=== PATIENT | female | born 2000 | race Caucasian/White ===

== ENCOUNTER 2024-06-09 05:57 | Emergency (ER) | payer BC, SELFPAY ==
--- NOTE | ~2024-06-09 | CT_ITS ---
CLINICAL HISTORY: fall with head strike and LOC CT head without contrast Comparison: None Findings: No intra-axial mass, midline shift, hydrocephalus, or acute hemorrhage. No significant atrophy-like change or white matter disease. There is no sinus or mastoid fluid. The orbits are unremarkable. No skull fracture. IMPRESSION: 1. No acute intracranial hemorrhage or skull fracture. This document has been electronically signed by: Maria Whitmore MD on 06/09/2024 07:51:29
--- NOTE | ~2024-06-09 | CT_ITS ---
CLINICAL HISTORY: syncope + dimer CT angiography chest with contrast. 3D Postprocessing. Comparison: None Findings: The heart is not enlarged. Bovine aortic arch, normal variant. The main pulmonary artery measures 2.5 cm in diameter and 397 Hounsfield units. No main, lobar, or segmental pulmonary arterial filling defect. No intrathoracic lymphadenopathy. The lungs are clear. The proximal celiac artery is narrowed and inferiorly deflected. Correlate for evidence of median arcuate ligament syndrome. Left renal superior pole subcentimeter hypodensity, too small to characterize. Anterosuperior splenic subcentimeter hypodensity, too small to characterize. No acute fractures. IMPRESSION: No evidence of pulmonary embolism. No acute intrathoracic findings. This document has been electronically signed by: Andrews Mantilla DO on 06/09/2024 11:35:11
--- NOTE | ~2024-06-09 | CT_ITS ---
CLINICAL HISTORY: fall with LOC and head strike CT cervical spine without contrast Comparison: None Findings: Vertebral alignment is within normal limits. No significant degenerative change. No acute fractures or dislocations. No acute findings on limited view of the intracranial contents. No cervical fluid collections or masses. Lung apices are clear. IMPRESSION: No evidence of acute fracture or malalignment. This document has been electronically signed by: Maria Whitmore MD on 06/09/2024 07:56:46
[2024-06-09 06:02] VITALS: BP 101/53; PULSE 97; RESP 18; TEMP 37.1; O2SAT 98; BMI 22.4
--- NOTE | 2024-06-09 06:23 | ECG_ITS ---
Test Reason : FALL Blood Pressure : */* mmHG Vent. Rate : 71 BPM Atrial Rate : 71 BPM P-R Int : 136 ms QRS Dur : 92 ms QT Int : 378 ms P-R-T Axes : 42 78 -2 degrees QTcB Int : 410 ms Normal sinus rhythm T wave abnormality, consider inferior ischemia Abnormal ECG No previous ECGs available Referred By: Generic ED Physician Electronically Signed By: JERSON FLORES MD
--- NOTE | 2024-06-09 06:53 | ED_ITS ---
HPI - General Adult General Chief complaint: Fall Stated complaint: fainted, fall w/ head strike Time Seen by Provider: 06/09/24 06:46 Source: patient Mode of arrival: ambulatory Limitations: no limitations History of Present Illness ED Provider: FELICIA Arrington HPI narrative: This is a 23 year old female history of vasovagal syncope presenting from [facility] status post 2 syncopal episodes this morning. Patient reports she got up at approximately 04:30 in the morning and she was walking to the bathroom, she reports she passed out in the hallway with positive head strike, she then returned to her room she told her roommate she then tried walking to the bathroom again with her roommate she went to the bathroom had liquid diarrhea and on her way back to the room she again passed out with positive head strike. She is not on blood thinners. She tells me she has a history of vasovagal syncope. Related Data Previous Rx's ?Medication ?Instructions ?Recorded ondansetron HCl 4 mg tablet 4 mg PO Q8H PRN nausea and 06/09/24 vomiting #14 tabs Allergies Allergy/AdvReac Type Severity Reaction Status Date / Time honey AdvReac Hives Verified 06/09/24 06:03 shrimp AdvReac Hives Verified 06/09/24 06:03 Review of Systems 2 Review of Systems: Yes all other systems are reviewed and are negative [facility] Past Medical History Attestation statement: The following information was validated with the patient. Source: old records reviewed and nursing notes reviewed Social History Social History Smoked in Last 30 Days: No Advance Directives: No Advance Directives Information Provided: Yes Do you have a plan to hurt others: No Plan Patient : No Physical Exam ED Vital Signs: Vital Signs - 24 hr 06/09/24 06:02 06/09/24 10:41 06/09/24 11:51 Temperature 98.8 F 98.4 F 97.9 F Pulse Rate 97 68 92 Respiratory Rate 18 14 16 Blood Pressure 101/53 L 98/50 L 96/54 L Pulse Oximetry 98 100 100 Oxygen Delivery Method Room Air Room Air Room Air 06/09/24 12:08 Temperature 97.9 F Pulse Rate 92 Respiratory Rate 16 Blood Pressure 96/54 L Pulse Oximetry 100 Oxygen Delivery Method Room Air BMI result Body Mass Index 22.4 Vital signs stable Appearance: Alert.? Oriented X3.? No acute distress.? Head: Normocephalic, atraumatic, no step-offs or deformities Eyes: Pupils equal, round and reactive to light.? ENT: Pharynx normal.? Neck: Normal inspection.? Neck supple.? CVS: Normal heart rate and rhythm.? Pulses normal.? Respiratory: No respiratory distress.? Breath sounds normal.? Abdomen: Soft and nontender.? Skin: Skin warm and dry.? Normal skin color.? Normal skin turgor.? Extremities: No lower extremity edema.? No calf ttp. 5/5 strength to bilateral upper and lower extremities Neuro: Oriented X 3.? No motor deficit.? No sensory deficit. CN 2-12 intact Course Reevaluation(s) Reevaluation #1: CBC with leukocytosis and left shift. Chemistry with no acute findings needing intervention. Troponin negative, EKG nonischemic. Beta hCG negative. D-dimer positive order CTA to further evaluate syncope and positive D-dimer. She denies chest pain and shortness of breath low suspicion for PE however will rule out. Flu, COVID, RSV negative. Pending CTA Time: 09:31 Reevaluation #2: CT head no acute intracranial findings. CT cervical spine no evidence of acute fracture or malalignment. CTA negative for PE. No abnormalities. Urine negative. Educated patient on diagnosis and treatment plan, answered all question, patient verbalizes understanding. At this time patient will be discharged home, advised to return with new or worsening symptoms. Educated on worrisome signs and symptoms and when to return. At this time I feel comfortable discharge home. Time: 11:41 Reevaluation #3: Upon re-evaluation and discharge patient states headache much better. She is feeling much better. Medications Administered Discontinued Medications Generic Name Dose Route Start Last Admin Trade Name Freq PRN Reason Stop Dose Admin Acetaminophen 650 mg 06/09/24 08:34 06/09/24 09:25 Acetaminophen 325 Mg Tablet PO 06/09/24 08:35 650 mg ONCE ONE Administration Sodium Chloride 1,000 mls @ 999 mls/hr 06/09/24 11:15 06/09/24 11:51 Ns IV 06/09/24 12:15 Infused .Q1H1M ILIR Infusion Iohexol 100 ml 06/09/24 09:35 06/09/24 09:35 Iohexol 350 Mg/Ml 100 Ml Infus..Btl IV 06/09/24 09:36 65 ml ONCE ONE Administration Medical Decision Making Medical Decision Making [facility] Narrative: 0708 23-year-old female presents status post 2 syncopal episodes, diarrhea and diffuse abdominal cramping. Physical exam benign. Neurological assessment nonfocal. Abdomen soft nontender nondistended History and physical exam concerning for viral illness with likely to episodes of vasovagal syncope. Unlikely intracranial hemorrhage, stroke, posterior stroke. Unlikely seizure. No signs of trauma to head, neck, chest, abdomen or pelvis. Diarrhea likely viral/norovirus versus flu versus COVID. Unlikely pulmonary embolism PERC negative. Unlikely ACS or dissection. Low suspicion for dysrhythmia Plan labs, imaging Differential Diagnosis Differential Diagnoses: The differential diagnosis associated with the presentation includes (History and physical exam concerning for viral illness with likely to episodes of vasovagal syncope. Unlikely intracranial hemorrhage, stroke, posterior stroke. Unlikely seizure. No signs of trauma to head, neck, chest, abdomen or pelvis. Diarrhea likely viral/norovirus versus flu versus COVID. ) Admission/Observation Consideration of admission/observation: Escalation of care including admission/observation considered Lab Data [facility] Lab Attestation statement: I reviewed the patient's lab results. 06/09/24 07:08 06/09/24 07:08 Labs: Lab Results 06/09/24 06/09/24 06/09/24 Range/Units 07:08 07:40 10:44 WBC 12.7 H (4.8-10.8) X10*3/uL RBC 4.02 L (4.20-5.50) X10*6/uL Hgb 12.1 (12.0-16.0) g/dl Hct 34.5 L (37.0-47.0) % MCV 85.8 (80.0-98.0) fL MCH 30.1 (27.0-33.0) pg MCHC 35.1 H (31.0-35.0) g/dl RDW 13.7 (11.0-16.0) % Plt Count 234 (160-400) X10*3/uL MPV 8.7 L (9.4-12.3) fL Immature Gran % (Auto) 0.4 (0.0-0.4) % Neut % (Auto) 91.5 H (45-73) % Lymph % (Auto) 3.4 L (20-40) % [place] % (Auto) 4.5 (2-11) % Eos % (Auto) 0.0 (0-4) % Baso % (Auto) 0.2 (0-2) % Lymph # (Auto) 0.4 L (1.2-4.9) X10*3/uL [place] # (Auto) 0.6 (0.1-1.2) X10*3/uL Eos # (Auto) 0.0 (0.0-0.4) X10*3/uL Baso # (Auto) 0.0 (0.0-0.2) X10*3/uL Abs Immat Gran (auto) 0.05 H (0.00-0.03) X10*3/uL Absolute Neuts (auto) 11.6 H (2.0-8.3) x10*3/uL Absolute Nucleated RBC 0.000 (0.0-0.012) X10*3/uL Nucleated RBC % (auto) 0.0 (0.0-0.2) /100WBC Smear Tech's Comments VERIFIED PT 14.6 H (10.9-12.4) SEC INR 1.3 H (0.9-1.1) D-Dimer High Sensitivty 306 NG/ML Sodium 134 L (135-145) mmol/L Potassium 4.4 (3.3-5.1) mmol/L Chloride 105 (96-108) mmol/L Carbon Dioxide 19 L (22-29) mmol/L Anion Gap 14 (12-20) BUN 10 (9-16) mg/dL Creatinine 0.76 (0.5-1.4) mg/dL Estim Creat Clear Calc 113.8 Estimated GFR > 60 Random Glucose 132 H (60-115) mg/dL Calcium 9.0 (8.4-10.2) mg/dL Total Bilirubin 0.9 (0.0-1.0) mg/dL AST 17 (5-31) U/L ALT 9 (0-31) U/L Alkaline Phosphatase 70 (39-117) U/L Troponin I High Sens < 2.7 (<3.5-17.0) ng/L Total Protein 7.0 (6.5-8.0) g/dL Albumin 4.1 (3.5-5.0) g/dL Beta HCG, Quant < 2 mIU/mL Urine Color Yellow Urine Appearance Clear Urine pH 6.5 (5.0-9.0) Ur Specific [place] 1.010 (1.005-1.025) Urine Protein Negative (Neg-Trace) mg/dL Urine Glucose (UA) Negative (Negative) mg/dL Urine Ketones Negative (Negative) mg/dL Urine Blood Negative (Negative) Urine Nitrite Negative (Negative) Ur Leukocyte Esterase Negative (Negative) Influenza Type A (PCR) NEGATIVE (Negative) Influenza Type B (PCR) NEGATIVE (Negative) RSV RNA Qual (PCR) NEGATIVE (Negative) SARS-CoV-2 RNA (RT-PCR) NEGATIVE (Negative) Independent Interpretation I performed an independent interpretation of an: CT Scan Radiology Impression Discussion of test interpretation with radiology: I have reviewed the radiologist's reading. Chronic Conditions Patient?s care impacted by: Other (see hpi ) Critical Care Time Critical Care Time Critical Care Time: Yes Total Critical Care Time: 35 Attestation: I attest to this time spent taking care of the patient, obtaining history, physical, reviewing labs, imaging, treatment of patients condition +/- specialist/hospitalist consult Discharge Plan Discharge Clinical Impression: Viral illness, Nausea & vomiting, Diarrhea, Concussion with loss of consciousness Patient Disposition: Home, Self-Care Instructions: Acute Nausea and Vomiting (ED), Acute Diarrhea (ED), Viral Syndrome (ED), Post Concussion Syndrome (ED) Additional Instructions: Take your medications as prescribed. If you were prescribed antibiotics today, it is important that you take your medication to their entirety, do not skip any doses, do not finish them early. Follow-up with your primary care provider this week. Return to the emergency department with new or worsening symptoms. Such as fevers, chills, chest pain, shortness of breath, nausea, vomiting, dizziness, headache, vision changes, lethargy In case of emergency call 911 Darcie has been sent to your pharmacy for nausea and vomiting. Diarrhea is likely viral and he should let it run its course. Drink plenty of fluids Prescriptions: New ondansetron HCl 4 mg tablet 4 mg PO Q8H PRN (Reason: nausea and vomiting) Qty: 14 0RF Referrals: Emily Mariscal, [facility], NURSING TECH [Primary Care Provider] - 2 days Stand Alone Forms: Work/School Release Interventions: ED Discharge Assessment Last Done: 06/09/24 12:08 Discharge Date/Time: 06/09/24 12:09 Print Language: Wallisian
[2024-06-09 07:13] LABS: Basophils Percent Auto 0.2 % (0-2); Hematocrit 34.5 % (37.0-47.0); Hemoglobin 12.1 g/dl (12.0-16.0); Imm Gran Abs Auto 0.05 X10*3/uL (0.00-0.03); Imm Gran Pct Auto 0.4 % (0.0-0.4); Lymphocytes Absolute Auto 0.4 X10*3/uL (1.2-4.9); Lymphocytes Percent Auto 3.4 % (20-40); MANUAL DIFF FLAG SCAN; Mean Corpuscular HGB Conc 35.1 g/dl (31.0-35.0); Mean Corpuscular Hemoglobin 30.1 pg (27.0-33.0); Mean Corpuscular Volume 85.8 fL (80.0-98.0); Mean Platelet Volume 8.7 fL (9.4-12.3); Monocytes Absolute Auto 0.6 X10*3/uL (0.1-1.2); Monocytes Percent Auto 4.5 % (2-11); Neutrophils Absolute Auto 11.6 x10*3/uL (2.0-8.3); Neutrophils Percent Auto 91.5 % (45-73); Platelet Count 234 X10*3/uL (160-400); Red Blood Count 4.02 X10*6/uL (4.20-5.50); Red Cell Distribution Width 13.7 % (11.0-16.0); SCAN SMEAR FLAG 1; White Blood Count 12.7 X10*3/uL (4.8-10.8)
[2024-06-09 07:17] LABS: INTERNATIONAL NORM RATIO 1.3 (0.9-1.1); Prothrombin Time 14.6 SEC (10.9-12.4)
[2024-06-09 07:27] LABS: Alanine Aminotransferase 9 U/L (0-31); Albumin Level 4.1 g/dL (3.5-5.0); Alkaline Phosphatase 70 U/L (39-117); Anion Gap 14 (12-20); Aspartate Amino Transferase 17 U/L (5-31); Bilirubin Total 0.9 mg/dL (0.0-1.0); Blood Urea Nitrogen 10 mg/dL (9-16); Carbon Dioxide 19 mmol/L (22-29); Chloride 105 mmol/L (96-108); Creatinine Clr Calc Pharmacy 113.8; Estimated Glomerular Filt Rate > 60; Glucose Random 132 mg/dL (60-115); Potassium 4.4 mmol/L (3.3-5.1); Sodium 134 mmol/L (135-145)
[2024-06-09 07:32] LABS: SLIDE REVIEW VERIFIED
[2024-06-09 07:40] LABS: D Dimer High Sensitivity 306 NG/ML
[2024-06-09 07:49] LABS: Troponin-I High Sensitivity < 2.7 ng/L (<3.5-17.0)
[2024-06-09 08:23] LABS: Influenza A PCR NEGATIVE (Negative); Influenza B PCR NEGATIVE (Negative); Resp Syncy Virus RNA Qual PCR NEGATIVE (Negative); SARS COV2 PCR INHOUSE NEGATIVE (Negative)
[2024-06-09 08:51] LABS: HCG Quantitative < 2 mIU/mL
--- NOTE | 2024-06-09 08:58 | PC.NURSE ---
Pt to CT for Chest Angio
[2024-06-09] MEDS: Acetaminophen 325 MG TABLET 650 MG PO (09:25)
[2024-06-09] MEDS: iohexoL 350 MG/ML 100 ML INFUS..BTL IV (09:35)
[2024-06-09 10:41] VITALS: BP 98/50; PULSE 68; RESP 14; TEMP 36.9; O2SAT 100
[2024-06-09 10:57] LABS: Appearance Urine Clear; Color Urine Yellow; Glucose Urine UA Negative (Negative); Leukocyte Esterase Urine Negative (Negative); Nitrite Urine Negative (Negative); PH 6.5 (5.0-9.0); Urine Blood Negative (Negative); Urine Ketones Negative (Negative); Urine Protein Negative (Neg-Trace)
[2024-06-09] MEDS: 0.9 % Sodium Chloride 1,000 ML 999 ML IV (11:25)
[2024-06-09 11:51] VITALS: BP 96/54; PULSE 92; RESP 16; TEMP 36.6; O2SAT 100
[2024-06-09 12:08] VITALS: BP 96/54; PULSE 92; RESP 16; TEMP 36.6; O2SAT 100
== END 2024-06-09 12:09 | disposition home or self-care (01) ==
PROVIDERS: Physician Assistant; Emergency Provider Emergency Medicine; PCP Nurse Practitioner Family
DX: S06.0X0A Concussion without loss of consciousness, initial encounter (principal); B34.9 Viral infection, unspecified; R55 Syncope and collapse; R51.9 Headache, unspecified; M54.2 Cervicalgia; R11.2 Nausea with vomiting, unspecified; R19.7 Diarrhea, unspecified; R94.31 Abnormal electrocardiogram [ECG] [EKG]; R10.2 Pelvic and perineal pain; X58.XXXA Exposure to other specified factors, initial encounter; Y93.9 Activity, unspecified; Y92.9 Unspecified place or not applicable; Y99.8 Other external cause status; Z03.818 Encounter for observation for suspected exposure to other biological agents ruled out
CPT/HCPCS: 0241U; 36415; 70450; 71275; 72125; 80053; 81003; 84484; 84702; 85025; 85379; 85610; 93005; 99284; 99285; Q9967

== ENCOUNTER → 2024-06-09 06:23 | Outpatient (BNV) | payer BC, SELFPAY | PROVIDERS: Emergency Provider Emergency Medicine; PCP Nurse Practitioner Family; Visit Provider Internal Medicine Cardiovascular Disease | DX: R94.31 Abnormal electrocardiogram [ECG] [EKG] (principal); W19.XXXA Unspecified fall, initial encounter | CPT/HCPCS: 93010 ==

== ENCOUNTER → 2024-06-09 06:24 | Outpatient (BNV) | payer BC, SELFPAY | PROVIDERS: Emergency Provider Emergency Medicine; PCP Nurse Practitioner Family; Visit Provider Radiology Diagnostic Radiology | DX: R55 Syncope and collapse (principal); R79.1 Abnormal coagulation profile; S06.9X9A Unspecified intracranial injury with loss of consciousness of unspecified duration, initial encounter; W19.XXXA Unspecified fall, initial encounter | CPT/HCPCS: 70450; 71275; 72125 ==